=== PATIENT | female | born 1985 | race African-American/Black ===

== ENCOUNTER 2017-05-12 10:50 | Emergency (ER) | payer MEDICAID ==
[2017-05-12 11:19] VITALS: BP 140/91
[2017-05-12 11:40] LABS: HCG UR QUAL NEGATIVE
--- NOTE | 2017-05-12 12:20 | ED Physician Documentation ---
History of Present Illness - Stated complaint Stated Complaint: FEMALE - Chief complaint Chief Complaint: General - History obtained from History obtained from: Patient - History of Present Illness Timing: Today Pain level max: 0 Pain level now: 0 Improved by: nothing Worsened by: nothing - Additonal information Additional information: Patient is a 31-year-old female presents to the emergency department stating that she was approximately 10 days late for her period. She states that today she developed vaginal bleeding, concern that she was having a possible miscarriage. Went to an OB clinic who sent her here for evaluation. She had taken tests at home that were negative. She has no abdominal pain. No vaginal discharge. Review of Systems Constitutional: denies: Fever, Chills Ears: denies: Ear pain Nose: denies: Rhinorrhea / runny nose, Congestion Respiratory: denies: Cough, Wheezing GI: denies: Vomiting, Diarrhea : denies: Dysuria, Frequency, Hesitancy Skin: denies: Rash Musculoskeletal: denies: Neck pain, Back pain PD PAST MEDICAL HISTORY - Past Medical History Past Medical History: No - Past Surgical History Past Surgical History: No - Present Medications Home Medications: Ambulatory Orders Medication Instructions Recorded Confirmed No Known Home Medications [No 05/12/17 05/12/17 Known Home Medications] - Allergies Allergies/Adverse Reactions: Allergies Allergy/AdvReac Type Severity Reaction Status Date / Time No Known Drug Allergies Allergy Verified 05/12/17 11:14 - Social History Does the pt smoke?: Yes Smoking Status: Light tobacco smoker Does the pt drink ETOH?: No Does the pt have substance abuse?: Yes Substance Use and Type: Marijuana - Immunizations Immunizations are current?: Yes - POLST Patient has POLST: No PD ED PE NORMAL - Vitals Vital signs reviewed: Yes - General General: Alert and oriented X 3, No acute distress, Well developed/nourished - HEENT HEENT: Moist mucous membranes - Neck Neck: Supple, no meningeal sign - Cardiac Cardiac: RRR, Strong equal pulses - Respiratory Respiratory: No respiratory distress, Clear bilaterally - Abdomen Abdomen: Soft, Non tender, Non distended - Back Back: No CVA TTP - Derm Derm: Warm and dry - Extremities Extremities: No edema - Neuro Neuro: Alert and oriented X 3 - Psych Psych: Normal mood, Normal affect Results - Vitals Vitals: Vital Signs - 24 hr 05/12/17 11:15 Temperature 36.6 C Heart Rate 78 Respiratory 16 Rate Blood Pressure 140/91 H O2 Saturation 100 Oxygen O2 Source Room air - Labs Labs: Laboratory Tests 05/12/17 11:20 Ur Specific [place] 1.020 Urine HCG, Qual NEGATIVE PD MEDICAL DECISION MAKING - ED course Complexity details: reviewed results, considered differential, d/w patient ED course: Patient is a 31-year-old female who presents to the emergency department with late menses this month. Negative test at home and here. No evidence of ectopic , though ectopic precautions were given. She has no other complaints at this time. We will have her follow-up with her doctor as needed. Patient counseled regarding signs and symptoms for which I believe and urgent re-evaluation would be necessary. Patient with good understanding of and agreement to plan and is comfortable going home at this time This document was made in part using voice recognition software. While efforts are made to proofread this document, sound alike and grammatical errors may occur. Departure - Departure Disposition: 01 Home, Self Care Clinical Impression: Late menses Condition: Good Instructions: Menstrual Cycle Follow-Up: your,doctor as needed [Other] Comments: Your test is negative today. Return if you worsen, especially if you develop abdominal pain. Discharge Date/Time: 05/12/17 12:23
== END 2017-05-12 12:23 | disposition home or self-care (01) ==
LOC: ED 10:50
DX: N91.5 Oligomenorrhea, unspecified (principal); F17.200 Nicotine dependence, unspecified, uncomplicated
CPT/HCPCS: 81025; 99283

== ENCOUNTER 2017-05-27 09:34 | Outpatient (CLI) | payer MEDICAID | END 2017-05-27 09:35 | disposition home or self-care (01) | LOC: LAB.N 09:34 | PROVIDERS: ATTEND Obstetrics & Gynecology | DX: O20.0 Threatened abortion (principal) | CPT/HCPCS: 36415; 86900; 86901 ==

== ENCOUNTER 2017-05-28 09:18 | Outpatient (CLI) | payer MEDICAID ==
--- NOTE | 2017-05-28 13:57 | Ultrasound Report ---
DATE OF SERVICE: 05/28/2017 PELVIC ULTRASOUND: 05/28/2017 CLINICAL INDICATION: Pelvic pain. TECHNIQUE: Transabdominal pelvic ultrasound performed for global evaluation. Transvaginal pelvic ultrasound performed for detailed evaluation. Real-time scanning performed and static images obtained. FINDINGS: The uterus is anteverted, measuring 9.4 x 5.1 x 3.4 cm. The endometrial echo complex measures 12 mm. No focal myometrial lesion is present. The right ovary measures 4.9 x 3.3 x 2.7 cm, and contains a follicle. The left ovary measures 3.7 x 2.7 x 2.4 cm, and is unremarkable. A small amount of free fluid is noted in the cul-de-sac. IMPRESSION: NORMAL PELVIC ULTRASOUND. TD: 05/28/2017 13:57
== END 2017-05-28 09:19 | disposition home or self-care (01) ==
LOC: DI 09:18
PROVIDERS: ATTEND Obstetrics & Gynecology
DX: R10.2 Pelvic and perineal pain (principal)
CPT/HCPCS: 76830; 76856

== ENCOUNTER 2017-09-15 11:11 | Outpatient (CLI) | payer MEDICAID ==
[2017-09-15 12:44] LABS: BASOPHILS # (AUTO) 0.1 10^3/uL (0.0-0.1); BASOPHILS % (AUTO) 1.1 %; EOSINOPHILS # (AUTO) 0.3 10^3/uL (0.0-0.7); EOSINOPHILS % (AUTO) 3.9 %; HGB - HEMOGLOBIN 13.5 g/dL (12.0-16.0); LYMPHOCYTES # (AUTO) 2.5 10^3/uL (1.5-3.5); LYMPHOCYTES % (AUTO) 34.8 %; MEAN CORPUSCULAR HEMOGLOBIN 32.6 pg (27.0-31.0); MEAN CORPUSCULAR HGB CONC 33.9 g/dL (32.0-36.0); MEAN CORPUSCULAR VOLUME 96.1 fL (81.0-99.0); MEAN PLATELET VOLUME 8.5 fL (7.9-10.8); MONOCYTES # (AUTO) 0.4 10^3/uL (0.0-1.0); MONOCYTES % (AUTO) 5.7 %; NEUTROPHILS % (AUTO) 54.5 %; PLT - PLATELET COUNT 231 10^3/uL (130-450); RED BLOOD COUNT 4.13 10^6/uL (4.20-5.40); RED CELL DISTRIBUTION WIDTH 13.6 % (12.0-15.0); WHITE BLOOD COUNT 7.3 x10^3/uL (4.8-10.8)
== END 2017-09-15 11:12 | disposition home or self-care (01) ==
LOC: LAB.N 11:11
PROVIDERS: ATTEND Obstetrics & Gynecology
DX: N87.1 Moderate cervical dysplasia (principal); R87.613 High grade squamous intraepithelial lesion on cytologic smear of cervix (HGSIL)
CPT/HCPCS: 36415; 84702; 85025

== ENCOUNTER 2017-09-16 09:31 | Day surgery (SDC) | payer MEDICAID ==
--- NOTE | 2017-09-15 15:20 | PREOP HISTORY & PHYSICAL ---
DATE OF SERVICE: 09/16/2017 Physician: Mohamud Esquivel MD PREOPERATIVE HISTORY AND PHYSICAL 09/15/2017 FOR ANTICIPATED DATE OF 09/16/2017 HISTORY OF PRESENT ILLNESS: Patient is a 31-year-old G1, P0, AB1 female who presents for her LEEP procedure. She has a longstanding history of abnormal Pap smears. She states that she has never had a normal Pap smear at this particular time. Patient underwent a colposcopy with biopsy done on 07/21/2017, at which time she was noted to have TODD 2, TODD 3 at 1 o'clock, 7 o'clock showed evidence of TODD 3. The cervical biopsy at 11 o'clock showed TODD 3. The endocervical curettings showed TODD 2 and 3. For this reason, she presents for a LEEP procedure. Patient is very anxious and thus accomplishing it in the office is going to be very difficult. For this reason, we are taking her to the operating room, at which time, this can be performed with adequate analgesia and control. She recently has had a chlamydial infection, which has been treated both her and her spouse. PAST MEDICAL HISTORY: Patient denies any hypertensive, diabetic, cardiac, or pulmonary disease. PAST SURGICAL HISTORY: None. ALLERGIES: NONE KNOWN. CURRENT MEDICATIONS: Fluoxetine 20 mg. HABITS: Patient denies use of tobacco, alcohol, but does use THC on a daily basis, in fact, the patient admits to be using it today. She has been instructed that she should not do this prior to surgery as this may interact with her anesthetic. SOCIAL HISTORY: Patient is single, lives with her mother. Works as a guitar player. She does engage in regular strong exercise. FAMILY HISTORY: Negative for breast or ovarian cancers. Family history for cardiovascular disease, which includes heart attack and stroke. REVIEW OF SYSTEMS: Patient has good health at this time. PHYSICAL EXAMINATION GENERAL: Patient is a well-developed, well-nourished female. She is in no acute distress at this time. She appears to be somewhat inebriated from her THC. VITAL SIGNS: Blood pressure is 110/72, heart rate is 76. BMI is 21.4. HEENT: Pupils equal, round. Extraocular muscles intact. Thyroid is not palpably enlarged. HEART: Regular rate and rhythm without murmurs. LUNGS: Lung coe are clear without rales or wheezes. BACK: No spinal or CVA tenderness noted at this particular time. ABDOMEN: Unremarkable without scars. Previously had a colposcopy, which showed a cervix with evidence of acetowhite epithelium. IMPRESSION: Cervical intraepithelial neoplasia (TODD 3). PLAN: We will take the patient to the operating room and will perform a LEEP procedure. This will be done in the OR because of her anxiety. Patient is aware of the potential for cervical injury with difficulty with holding future pregnancies but because of the diagnosis of TODD 3, I believe it is imperative that we proceed with this course of action. cc: Mohamud Esquivel MD TD: 09/15/2017 14:23 MTDD
[2017-09-16 09:58] LABS: HCG UR QUAL NEGATIVE
[2017-09-16] MEDS ORDERED: LACTATED RINGERS 1,000 ML IV ONE (10:05)
[2017-09-16] MEDS ORDERED: IODINE/POTASSIUM IODIDE 8 ML SOLUTION TOP ONE ×3 (10:58→11:24)
[2017-09-16] MEDS ORDERED: MIDAZOLAM 2 MG/2 ML VIAL IVP ONE (11:00)
[2017-09-16] MEDS ORDERED: fentaNYL 100 MCG/2 ML VIAL IVP ONE (11:00)
[2017-09-16] MEDS ORDERED: LIDOCAINE 1% 50 ML MDV IV ONE (11:00)
[2017-09-16] MEDS ORDERED: KETOROLAC 30 MG/ML VIAL IVP ONE (11:00)
[2017-09-16] MEDS ORDERED: BUPIVACAINE 0.25%-EPI 1:200000 PF 30 ML VIAL ONE (11:36)
[2017-09-16] MEDS ORDERED: BUPIVACAINE 0.25%-EPI 1:200000 PF 10 ML VIAL SUBQ ONE (11:45)
[2017-09-16 12:46] VITALS: BP 141/91
--- NOTE | 2017-09-16 12:53 | OPERATIVE REPORT ---
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 PROCEDURE PERFORMED: LEEP. SURGEON: Mohamud Esquivel M.D. ANESTHESIA: MAC. IT ASSISTANT: Janelle Ferreira CRNA ESTIMATED BLOOD LOSS: Less than 5 mL FINDINGS: Upon inserting the speculum, she had a large area in the posterior cervix on the right-hand side, which was uneven and contour. There was lack of Lugol staining in this area. DESCRIPTION OF PROCEDURE: Following adequate anesthesia with an LMA, the patient was placed in the dorsal lithotomy position in [facility] cane stirrups. At this point, a speculum was placed in the vagina. The cervix was visualized. This was then anesthetized with 0.25% Marcaine with epinephrine in a circumferential pattern following prepping with iodine. The iodine was observed and noted to have its margins of nonstaining and staining. At this point, a loop was used to excise the lesion on the posterior cervix. Following this, the anterior cervix was also excised. There was an extra divot taken at 12 o'clock as well as 9 o'clock. The area was inspected for bleeding and minimal was noted. A top hat was then obtained of the endocervical canal with a LEEP and then an endocervical curetting was accomplished above this. Electrocautery ball was utilized to cauterize any bleeders. There was evidence of good hemostasis. Following this, Monsel's solution was placed on the cervix. There was minimal to no bleeding at this particular point. The procedure was terminated. The patient was taken to recovery room in stable condition. Sponge and needle counts were correct. TD: 09/16/2017 12:24
== END 2017-09-16 09:32 | disposition home or self-care (01) ==
LOC: SDS 09:31
PROVIDERS: ATTEND Obstetrics & Gynecology
PROC: 0UBC7ZX Excision of Cervix, Via Natural or Artificial Opening, Diagnostic (ICD-10-PCS; principal; 2017-09-16 11:15)
DX: D06.7 Carcinoma in situ of other parts of cervix (principal)
CPT/HCPCS: 57522; 81025; A9270; J7120

== ENCOUNTER 2017-10-01 16:00 | Outpatient (CLI) | payer MEDICAID | END 2017-10-01 16:01 | disposition home or self-care (01) | LOC: LAB.R 16:00 | PROVIDERS: ATTEND Obstetrics & Gynecology | DX: N76.0 Acute vaginitis (principal) | CPT/HCPCS: 87480; 87510; 87660 ==